=== PATIENT | female | born 1990 | race Caucasian/White ===

== ENCOUNTER 2017-02-10 12:05 | Emergency (ER) | payer MEDICAID ==
[~2017-02-10] VITALS: Ht 160 cm; Wt 56.5 kg
[~2017-02-10 12:05] MED LIST: BACTDS PO; NO MEDS
[2017-02-10 12:13] VITALS: Ht 160 cm; Wt 56.5 kg
[2017-02-10] MEDS ORDERED: SOD CHLORIDE 0.9% 1,000 ML IV STA (13:15)
[2017-02-10] MEDS ORDERED: KETOROLAC 30 MG INJ IV STA (13:15)
[2017-02-10 13:44] LABS: ADD UMIC YES; UR BILIRUBIN (Dip) 1+ (NEGATIVE); UR BLOOD (Dip) 1+ (NEGATIVE); UR CLARITY CLEAR (CLEAR); UR COLOR YELLOW (YELLOW); UR GLUCOSE (Dip) NEGATIVE (NEGATIVE); UR KETONES (Dip) 3+ (NEGATIVE); UR LEUKOCYTE ESTERASE (Dip) 1+ (NEGATIVE); UR NITRITE (Dip) NEGATIVE (NEGATIVE); UR TOTAL PROTEIN (Dip) TRACE (NEGATIVE); UR UROBILINOGEN (Dip) 0.2 E.U./dL (0.1-1.0)
[2017-02-10 13:54] LABS: ADD SCAN DIFF NO
[2017-02-10 13:56] LABS: ICTOTEST NEGATIVE (NEGATIVE)
[2017-02-10 13:57] LABS: UR BACTERIA OCCASIONAL; UR MUCUS FEW
[2017-02-10 13:58] LABS: BASOPHILS % 0.4 % (0.0-2.0); HEMATOCRIT 33.2 % (37.0-47.0); HEMOGLOBIN 11.5 g/dl (12.0-16.0); LYMPHOCYTES # 1.3 10^3/ul (0.8-2.9); LYMPHOCYTES % 24.6 % (15.0-51.0); MEAN CORPUSCULAR HEMOGLOBIN 31.1 pg (29.0-33.0); MEAN CORPUSCULAR HGB CONC 34.6 g/dl (32.0-37.0); MEAN CORPUSCULAR VOLUME 89.7 fl (82.0-101.0); MEAN PLATELET VOLUME 8.7 fl (7.4-10.4); MONOCYTE # 0.3 10^3/ul (0.3-0.9); MONOCYTES % 4.7 % (0.0-11.0); NEUTROPHIL # 3.7 10^3/ul (1.6-7.5); NEUTROPHILS % 69.4 % (39.0-77.0); PLATELET COUNT 331 10^3/UL (140-415); RED CELL DISTRIBUTION WIDTH 11.4 % (11.5-14.5); WHITE BLOOD COUNT 5.3 10^3/ul (4.8-10.8)
[2017-02-10 14:13] LABS: ALBUMIN 4.5 g/dl (3.3-4.9); ALBUMIN/GLOBULIN RATIO 1.6; BILIRUBIN,INDIRECT 0.2 mg/dl (0-1.1); BILIRUBIN,TOTAL 0.2 mg/dl (0.2-1.3); CALCIUM 9.4 mg/dl (8.4-10.2); CREATININE 0.65 mg/dl (0.44-1.00); POTASSIUM 3.2 mmol/L (3.5-5.1); TOTAL PROTEIN 7.3 g/dl (6.1-8.1)
[2017-02-10] MEDS ORDERED: IBUP400T22 PO (14:23)
[2017-02-10] MEDS ORDERED: CEPH-443 PO (14:23)
[2017-02-10] MEDS ORDERED: LIDOCAINE 1% (MDV) 20 ML INJ SC STA (14:30)
[2017-02-10] MEDS ORDERED: CEFTRIAXONE 500 MG INJ IM ONE (14:30)
[2017-02-10] MEDS ORDERED: AZITHROMYCIN 250 MG TAB PO STA (14:39)
[2017-02-10 15:12] VITALS: BP 94/42; PULSE 68; RESP 18; TEMP 98
--- NOTE | 2017-02-11 08:39 | ERD ---
ER Documentation Chief Complaint Date/Time DATE: 02/11/17 TIME: 08:35 Chief Complaint bodyache x 3 days HPI This is a 26-year-old female presenting to the emergency department complaining of body aches for the past 2 days. Patient states that she has pain in most of her joints however most of the pain is in the left shoulder, bilateral ankle pain.. Patient rates his pain around 7 out of 10. Patient states that it all started with a itchy nontender rash that occurred tonight and patient took Benadryl, she woke up the next morning with body aches however she states that the rash has resolved. Patient has not taken any pain medications today. She denies any fever, recent traveling, medical problems. ROS All systems reviewed and are negative except as per history of present illness. Medications Home Meds Active Scripts Ibuprofen* (Motrin*) 400 Mg Tab, 400 MG PO Q6H Y for PAIN AND OR ELEVATED TEMP, #30 TAB Prov:WILMER ZHENG PA-C 02/10/17 Cephalexin* (Keflex*) 500 Mg Capsule, 500 MG PO BID for 10 Days, CAP Prov:WILMER ZHENG PA-C 02/10/17 Sulfamethoxazole-Trimethoprim* (Bactrim* DS) 800-160 Mg Tab, 1 TAB PO BID for 10 Days, TAB Prov:JALEN ADAMS NP 06/27/15 Reported Medications [No Meds] No Conflict Check 03/07/11 Allergies Allergies: Coded Allergies: No Known Allergies (Verified Allergy, Mild, 03/07/11) PMhx/Soc History of Surgery: No Anesthesia Reaction: No Hx Neurological Disorder: No Hx Respiratory Disorders: Yes (ASTHMA) Hx Cardiac Disorders: No Hx Psychiatric Problems: No Hx Miscellaneous Medical Probl: No Hx Alcohol Use: No Hx Substance Use: No Hx Tobacco Use: No Physical Exam Vitals Vital Signs Date Time Temp Pulse Resp B/P Pulse Ox O2 Delivery O2 Flow Rate FiO2 02/10/17 15:12 98.0 68 18 94/42 97 Room Air 02/10/17 12:13 98.5 116 18 104/71 97 Physical Exam General: WD/WN, in no apparent distress, non-toxic appearing HENT: NC/AT Eyes: Conjunctiva normal Neck: Supple Pulm: Clear to auscultation, normal labored breathing; no wheezing/rales/ rhonchi heard CV: Good capillary refill, mild tachy, regular rhythm GI: Non-distended, no guarding Back: No masses Ext: Tender palpation in the left shoulder, tender palpation in the ankle, no swelling or erythema noted. Neuro: Moves on all fours Skin: intact Psych: Normal mood Result Diagram: 02/10/17 1340 02/10/17 1340 Results 24 hrs Laboratory Tests Test 02/10/17 13:39 02/10/17 13:40 Urine Color YELLOW Urine Clarity CLEAR Urine pH 6.0 Urine Specific [place] >=1.030 Urine Ketones 3+ Urine Nitrite NEGATIVE Urine Bilirubin 1+ Urine Ictotest NEGATIVE Urine Urobilinogen 0.2 E.U./dL Urine Leukocyte Esterase 1+ Urine Microscopic RBC 5-10/HPF Urine Microscopic WBC 5-10/HPF Urine Epithelial Cells FEW Urine Bacteria OCCASIONAL Urine Mucus FEW Urine Hemoglobin 1+ Urine Glucose NEGATIVE% Urine Total Protein TRACE White Blood Count 5.310^3/ul Red Blood Count 3.7010^6/ul Hemoglobin 11.5g/dl Hematocrit 33.2% Mean Corpuscular Volume 89.7fl Mean Corpuscular Hemoglobin 31.1pg Mean Corpuscular Hemoglobin Concent 34.6g/dl Red Cell Distribution Width 11.4% Platelet Count 05289^3/UL Mean Platelet Volume 8.7fl Neutrophils % 69.4% Lymphocytes % 24.6% Monocytes % 4.7% Eosinophils % 0.0% Basophils % 0.4% Nucleated Red Blood Cells % 0.0/100WBC Neutrophils # 3.710^3/ul Lymphocytes # 1.310^3/ul Monocytes # 0.310^3/ul Eosinophils # 0.010^3/ul Basophils # 0.010^3/ul Nucleated Red Blood Cells # 0.010^3/ul Sodium Level 143mmol/L Potassium Level 3.2mmol/L Chloride Level 105mmol/L Carbon Dioxide Level 28mmol/L Anion Gap 13 Blood Urea Nitrogen 12mg/dl Creatinine 0.65mg/dl Glucose Level 117mg/dl Calcium Level 9.4mg/dl Total Bilirubin 0.2mg/dl Direct Bilirubin 0.00mg/dl Indirect Bilirubin 0.2mg/dl Aspartate Amino Transf (AST/SGOT) 24IU/L Alanine Aminotransferase (ALT/SGPT) 33IU/L Alkaline Phosphatase 50IU/L Total Protein 7.3g/dl Albumin 4.5g/dl Globulin 2.80g/dl Albumin/Globulin Ratio 1.60 Lipase 81U/L Current Medications Medications (Trade) Dose Ordered Sig/Antonio Route PRN Reason Start Time Stop Time Status Last Admin Dose Admin Sodium Chloride (NS) 1,000 ml @ 1,000 mls/hr Q1H STAT IV 02/10/17 13:15 02/10/17 14:14 DC 02/10/17 13:41 Ketorolac Tromethamine (Toradol) 30 mg ONCE STAT IV 02/10/17 13:15 02/10/17 13:17 DC 02/10/17 13:42 Ceftriaxone Sodium (Rocephin) 500 mg ONCE ONCE IM 02/10/17 14:30 02/10/17 14:32 DC 02/10/17 14:47 Lidocaine (Xylocaine 1% (Mdv) 20 ml) 20 ml ONCE STAT SC 02/10/17 14:30 02/10/17 14:32 DC Azithromycin (Zithromax) 1,000 mg ONCE STAT PO 02/10/17 14:39 02/10/17 14:40 DC 02/10/17 14:47 Procedures/MDM This is a 26-year-old female presenting to the emergency room with a chief complaint of body aches and polyarthralgia for the past 3 days. there was no evidence of septic arthritis. Patient states that she started having a rash this Friday night and took Benadryl, rash is resolved however the body aches have started. IV access established, patient was given 1 L fluids and Toradol for pain. She states that pain has subsided slightly. Lab work was drawn. CBC did not show any evidence of leukocytosis or anemia. CMP did not show any evidence of renal, liver, or electrolyte abnormalities. . UA did not show positive leukocyte esterase and white blood cell count therefore patient will be empirically treated for a urinary tract infection and STD. In the ED patient was given Rocephin and azithromycin, she was given a prescription for Keflex for outpatient. Urine culture sent out. Patient's pain appears to be stabilized, she is afebrile and appears well. She stable for discharge to follow-up with a primary care physician tomorrow and to return to the ER for any worsening signs or symptoms are not improving as expected. She understands and agrees with this plan Departure Diagnosis: Primary Impression: UTI (urinary tract infection) Additional Impression: Polyarthralgia Condition: Stable Patient Instructions: Understanding Urinary Tract Infections (UTIs), Arthralgia Referrals: NO PRIMARY,CARE PHYSICIAN (PCP) COMMUNITY CLINICS YOU HAVE RECEIVED A MEDICAL SCREENING EXAM AND THE RESULTS INDICATE THAT YOU DO NOT HAVE A CONDITION THAT REQUIRES URGENT TREATMENT IN THE EMERGENCY DEPARTMENT. FURTHER EVALUATION AND TREATMENT OF YOUR CONDITION CAN WAIT UNTIL YOU ARE SEEN IN YOUR DOCTORS OFFICE WITHIN THE NEXT 1-2 DAYS. IT IS YOUR RESPONSIBILITY TO MAKE AN APPOINTMENT FOR FOLOW-UP CARE. IF YOU HAVE A PRIMARY DOCTOR --you should call your primary doctor and schedule an appointment IF YOU DO NOT HAVE A PRIMARY DOCTOR YOU CAN CALL OUR PHYSICIAN REFERRAL HOTLINE AT IF YOU CAN NOT AFFORD TO SEE A PHYSICIAN YOU CAN CHOSE FROM THE FOLLOWING [facility] [address] [facility] [address] [facility] [address] [facility] [address] [facility] [phone] [address]. [facility]. [address] [facility] [facility] Additional Instructions: FOLLOW UP WITH YOUR PRIMARY CARE PHYSICIAN TOMORROW.Return to this facility if you are not improving as expected. Take all medicines as directed. Return to this facility if you are not improving as expected. You have been given a medicine which may cause drowsiness.DO NOT DRIVE OR OPERATE DANGEROUS MACHINERY while taking this medicine! WILMER ZHENG PA-C Feb 11, 2017 08:39
== END 2017-02-10 15:20 | disposition home or self-care (01) ==
LOC: FTE 12:05
DX: N39.0 Urinary tract infection, site not specified (principal); M13.0 Polyarthritis, unspecified; J45.909 Unspecified asthma, uncomplicated
CPT/HCPCS: 80053; 81001; 83690; 85025; 87086; 87591; J0696; J1885; J7030; Z7610; 36415; 96372; 96374

== ENCOUNTER 2018-11-25 16:23 | Emergency (ER) | payer MEDICAID ==
[~2018-11-25] VITALS: Ht 162.6 cm; Wt 57.9 kg
[~2018-11-25 16:23] MED LIST changes: +CEPH-443 PO; +IBUP-1561 PO
[2018-11-25 16:27] VITALS: Ht 162.6 cm; Wt 57.9 kg
--- NOTE | 2018-11-25 20:40 | ERD ---
ER Documentation Chief Complaint Chief Complaint abd pain x 3 days deneis n/v/diarrhea; LMP 11/12/18 HPI This is a 28-year-old female presents to emerge department with complaints of pelvic pain for about 3 days, dysuria for about 2 days. LMP: Stated it was 4 days ago. A0. Denies headache, head injury, loss of consciousness, dizziness, neck pain, neck stiffness, throat pain, difficulty swallowing, difficulty breathing lying flat, shoulder pain, chest pain, back pain, nausea, vomiting, constipation, diarrhea, urinary symptoms, or possibility being , loss of bowel and bladder control, trauma, injury, falls, difficulty walking due to pain, numbness or tingling sensation, calf pain, recent travel, recent major surgery in the last 3 weeks, calf pain, recent long travel, recent exposure to any illness, recent antibiotic use in the last 3 months, fever, chills, seizures. Past medical history: Surgical history: Social: Denies smoking, use of alcoholic beverages, use of illegal drugs. ROS All systems reviewed and are negative except as per history of present illness. Medications Home Meds Active Scripts Cephalexin* (Keflex*) 500 Mg Capsule, 500 MG PO TID for 7 Days, CAP Prov:INGEILASUHAS WILDERAR F 11/25/18 Ondansetron Hcl* (Zofran*) 4 Mg Tablet, 4 MG PO Q8H PRN for NAUSEA AND/OR VOMITING, #30 TAB Prov:PASILABANSUHASAR F 11/25/18 Ibuprofen* (Motrin*) 600 Mg Tab, 600 MG PO Q6H PRN for PAIN AND OR ELEVATED TEMP, #30 TAB Prov:PASILATINASUHASEKATERINA F 11/25/18 Ibuprofen* (Motrin*) 400 Mg Tab, 400 MG PO Q6H PRN for PAIN AND OR ELEVATED TEMP, #30 TAB Prov:WILMER ZHENG PA-C 02/10/17 Cephalexin* (Keflex*) 500 Mg Capsule, 500 MG PO BID for 10 Days, CAP Prov:WILMER ZHENG PA-C 02/10/17 Sulfamethoxazole-Trimethoprim* (Bactrim* DS) 800-160 Mg Tab, 1 TAB PO BID for 10 Days, TAB Prov:JALEN ADAMS NP 06/27/15 Reported Medications [No Meds] No Conflict Check 03/07/11 Allergies Allergies: Coded Allergies: No Known Allergies (Verified Allergy, Mild, 03/07/11) PMhx/Soc History of Surgery: No Anesthesia Reaction: No Hx Neurological Disorder: No Hx Respiratory Disorders: Yes (ASTHMA) Hx Cardiac Disorders: No Hx Psychiatric Problems: No Hx Miscellaneous Medical Probl: No Hx Alcohol Use: No Hx Substance Use: No Hx Tobacco Use: No Physical Exam Vitals Physical Exam Const: No acute distress Head: Atraumatic Eyes: Normal Conjunctiva ENT: Normal External Ears, Nose and Mouth. Neck: Full range of motion. No meningismus. Resp: Clear to auscultation bilaterally Cardio: Regular rate and rhythm, no murmurs Abd: Soft, non tender, non distended. Normal bowel sounds. Negative Russ sign. Negative Bagley sign (heel jar test). Negative psoas sign. Able to jump 10 times without developing lower abdominal pain. Has bilateral pelvic tenderness to palpation. Bilateral inguinal areas no swelling/deformity/ bulging/point of tenderness. No CVA tenderness. Skin: No petechiae or rashes. Color appears normal for ethnicity. No skin tenting. No signs of severe dehydration. Back: No midline or flank tenderness Ext: No cyanosis, or edema Neur: Awake and alert. No neurological deficit. Psych: Normal Mood and Affect Results 24 hrs Laboratory Tests Test 11/25/18 20:48 11/25/18 21:01 White Blood Count 6.2 10^3/ul Red Blood Count 4.12 10^6/ul Hemoglobin 13.9 g/dl Hematocrit 39.4 % Mean Corpuscular Volume 95.6 fl Mean Corpuscular Hemoglobin 33.7 pg Mean Corpuscular Hemoglobin Concent 35.3 g/dl Red Cell Distribution Width 11.9 % Platelet Count 301 10^3/UL Mean Platelet Volume 8.9 fl Immature Granulocytes % 0.200 % Neutrophils % 60.3 % Lymphocytes % 30.7 % Monocytes % 8.1 % Eosinophils % 0.2 % Basophils % 0.5 % Nucleated Red Blood Cells % 0.0 /100WBC Immature Granulocytes # 0.010 10^3/ul Neutrophils # 3.7 10^3/ul Lymphocytes # 1.9 10^3/ul Monocytes # 0.5 10^3/ul Eosinophils # 0.0 10^3/ul Basophils # 0.0 10^3/ul Nucleated Red Blood Cells # 0.0 10^3/ul Urine Color YELLOW Urine Clarity TURBID Urine pH 7.0 Urine Specific [place] 1.021 Urine Ketones NEGATIVE mg/dL Urine Nitrite NEGATIVE mg/dL Urine Bilirubin NEGATIVE mg/dL Urine Urobilinogen NEGATIVE mg/dL Urine Leukocyte Esterase 2+ Elicia/ul Urine Microscopic RBC 5 /HPF Urine Microscopic WBC 12 /HPF Urine Squamous Epithelial Cells MANY /HPF Urine Amorphous Crystals MANY /HPF Urine Mucus MANY /HPF Urine Hemoglobin 1+ mg/dL Urine Glucose NEGATIVE mg/dL Urine Total Protein 1+ mg/dl Sodium Level 142 mmol/L Potassium Level 4.5 mmol/L Chloride Level 106 mmol/L Carbon Dioxide Level 28 mmol/L Anion Gap 8 Blood Urea Nitrogen 10 mg/dl Creatinine 0.62 mg/dl Est Glomerular Filtrat Rate mL/min > 60 mL/min Glucose Level 102 mg/dl Calcium Level 9.7 mg/dl Total Bilirubin 0.3 mg/dl Direct Bilirubin 0.00 mg/dl Indirect Bilirubin 0.3 mg/dl Aspartate Amino Transf (AST/SGOT) 23 IU/L Alanine Aminotransferase (ALT/SGPT) 23 IU/L Alkaline Phosphatase 54 IU/L Total Protein 8.0 g/dl Albumin 4.7 g/dl Globulin 3.30 g/dl Albumin/Globulin Ratio 1.42 Lipase 210 U/L POC Beta HCG, Qualitative NEGATIVE Current Medications Medications Dose Sig/Antonio Start Time Status Last (Trade) Ordered Route PRN Stop Time Admin Dose Reason Admin Cephalexin 500 mg ONCE ONCE 11/25/18 DC 11/25/18 (Keflex) PO 22:30 22:32 11/25/18 22:31 1 tab ONCE ONCE 11/25/18 DC Acetaminophen PO 22:30 / 11/25/18 22:41 Hydrocodone Bitart ([place] (5/325)) Ondansetron 4 mg ONCE STAT 11/25/18 DC 11/25/18 HCl (Zofran ODT 22:19 22:32 Odt) 11/25/18 22:20 Ibuprofen 600 mg ONCE ONCE 11/25/18 DC 11/25/18 (Motrin) PO 23:00 22:46 11/25/18 23:00 Procedures/MDM Diagnostic tests: POC urine : Negative. Urinalysis: UTI. Culture urine: Sent. Pelvic ultrasound: 1. IUD appears in good position. Otherwise unremarkable transabdominal ultrasound of the female pelvis. Ovaries and adnexa appear normal. Cause for pelvic pain is not evident. 2. Please note the transabdominal ultrasound is somewhat limited due to a contracted urinary bladder. Transvaginal scanning was not performed. Blood works: Reviewed. Treatment: Keflex. [place]. Zofran. Discontinued [place] because the patient refused. Re-evaluation: No episode of emesis here in the emergency department. Denies abdominal pain. Negative Russ sign. Negative Bagley sign (heel jar test). Negative psoas sign. Negative Rovsing sign. No CVA tenderness. Able to jump 1 0 times without developing lower abdominal pain. Differential diagnosis I have low suspicion for sepsis, peritonitis, cholecystitis, diverticulitis, diverticulitis with abscess, appendicitis, bowel obstruction, septic stone, obstructing kidney stone, pyelonephritis, ovarian torsion, ovarian cyst rupture, mesenteric ischemia. Final diagnosis: Pelvic pain. UTI. Prescription: Motrin. Keflex. Zofran. Follow-up with PCP in the next 24-48 hours. Follow-up with lead cook in the next 24-48 hours. Come back here in the emergency department for any new symptoms or any worsening symptoms. All questions and concerns were answered. Patient and family members verbalized understanding and agreed with plan of care. Hemodynamically stable on discharge. Departure Diagnosis: Primary Impression: UTI (urinary tract infection) Additional Impression: Pelvic pain Condition: Stable Additional Instructions: Follow-up with PCP in the next 24-48 hours. Follow-up with lead cook in the next 24-48 hours. Come back here in the emergency department for any new symptoms or any worsening symptoms. JC RUSH Nov 25, 2018 20:40
[2018-11-25] MEDS ORDERED: ONDANSETRON (ODT) 4 MG TAB ODT STA (22:19)
[2018-11-25] MEDS ORDERED: CEPH-443 PO (22:21)
[2018-11-25] MEDS ORDERED: ONDA4TAB8 PO (22:21)
[2018-11-25] MEDS ORDERED: IBUP-1542 PO (22:21)
[2018-11-25] MEDS ORDERED: HYDROCODONE/APAP (5/325) TAB PO ONE (22:30)
[2018-11-25] MEDS ORDERED: CEPHALEXIN 500 MG CAP PO ONE (22:30)
[2018-11-25 22:55] VITALS: BP 102/55; PULSE 68; RESP 17
[2018-11-25] MEDS ORDERED: IBUPROFEN 600 MG TAB PO ONE (23:00)
== END 2018-11-25 22:55 | disposition home or self-care (01) ==
LOC: FTE 16:23
DX: N39.0 Urinary tract infection, site not specified (principal); J45.909 Unspecified asthma, uncomplicated
CPT/HCPCS: 76830; 76856; 80053; 81001; 81025; 83690; 85025; Z7610; 36415

== ENCOUNTER 2019-07-06 17:25 | Emergency (ER) | payer SELFPAY ==
[~2019-07-06] VITALS: Ht 152.4 cm; Wt 78.0 kg
[~2019-07-06 17:25] MED LIST changes: +ACET325T33 PO; +CEPH500C PO; +IBUP-1542 PO; +ONDA4TAB8 PO
[2019-07-06 17:29] VITALS: Ht 152.4 cm; Wt 78.0 kg
[2019-07-06] MEDS ORDERED: CEFTRIAXONE 1 GM INJ IM ONE (20:00)
[2019-07-06 20:56] VITALS: BP 113/64; PULSE 77; RESP 18
== END 2019-07-06 20:56 | disposition home or self-care (01) ==
LOC: FTE 17:25
DX: O23.41 Unspecified infection of urinary tract in pregnancy, first trimester (principal); O99.511 Diseases of the respiratory system complicating pregnancy, first trimester; J45.909 Unspecified asthma, uncomplicated; R10.2 Pelvic and perineal pain; Z3A.01 Less than 8 weeks gestation of pregnancy
CPT/HCPCS: 36415; 76801; 76817; 81003; 81025; 84702; 85025; 86900; 86901; 87086; 96372; 99285; J0696